=== PATIENT | male | born 1995 | race American Indian/Alaskan Native ===

== ENCOUNTER 2018-02-18 15:34 | Emergency (ER) | payer OTHER ==
[2018-02-18 15:44] VITALS: BP 123/67
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
== END 2018-02-18 17:46 | disposition home or self-care (01) ==
LOC: ED 15:34
DX: R53.1 Weakness (principal); R11.2 Nausea with vomiting, unspecified; R20.2 Paresthesia of skin
CPT/HCPCS: 99282

== ENCOUNTER 2019-05-13 12:49 | Emergency (ER) | payer OTHER ==
[2019-05-13 13:01] VITALS: BP 128/83
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
== END 2019-05-13 17:03 | disposition home or self-care (01) ==
LOC: ED 12:49
DX: S39.012A Strain of muscle, fascia and tendon of lower back, initial encounter (principal); S00.81XA Abrasion of other part of head, initial encounter; I50.9 Heart failure, unspecified; V49.59XA Passenger injured in collision with other motor vehicles in traffic accident, initial encounter; Y93.89 Activity, other specified; Y92.410 Unspecified street and highway as the place of occurrence of the external cause; Y99.8 Other external cause status
CPT/HCPCS: 70486; 72100

== ENCOUNTER 2019-08-14 17:05 | Emergency (ER) | payer OTHER ==
[2019-08-14 17:54] VITALS: BP 109/55
--- NOTE | 2019-08-14 18:37 | Emergency Department Report ---
Chief Complaint: Back Pain/Injury Stated Complaint: BACK PAIN Time Seen by Provider: 08/14/19 18:28 - HPI History of Present Illness: HERE FOR A/C LBP NO NEW TRAUMA SEEN HERE IN PAST FOR SAME PT WANTS RX STATES THE ONES WE GAVE HIM LAST DID NOT WORK. - ROS Review of Systems: LBP NO FEVER NO CHILL NO NEW TRAUMA - Exam Vital Signs: Vital Signs 08/14/19 17:52 Temperature 98.1 F Pulse Rate 67 Respiratory 18 Rate Blood Pressure 109/55 O2 Sat by Pulse 98 Oximetry Physical Exam: ALERT ORIENTED AMBULATORY NO S/S CAUDA EQUINA NO SPINE TENDERNESS MSE screening note: Focused history and physical exam performed. Due to findings the following was ordered: NO LIFE THREAT MSE COMPLETED WAITING TO DETERMINE IF PT WILL STAY OR LEAVE WITH PCP REFERRAL Patient discussed with doctor:: NATALIE REYEZ ED Disposition for MSE Disposition: MED SCREENING EXAM-LEFT Is pt being admited?: No Does the pt Need Aspirin: No Condition: Stable Referrals: PRIMARY CAREMD [Primary Care Provider] - 3-5 Days Time of Disposition: 18:40
== END 2019-08-14 18:36 | disposition left against medical advice (07) ==
LOC: ED 17:05
DX: M54.5 Low back pain (principal)
CPT/HCPCS: 99281